=== PATIENT | male | born 1950 | race Caucasian/White ===

== ENCOUNTER 2016-05-27 19:46 | Inpatient (IN) | payer OTHER ==
--- NOTE | ~2016-05-27 | DS ---
Discharge Summary [facility] [address] [place]. [address] NAME: WILEY FAIR SR : 48 STATUS : DIS IN PAT#: [id number] AGE: 66 ADM/REG DATE : 05/27/16 MR#: [id number] REPORT SERV DATE: 06/09/16 DICTATED BY: SUYAPA KRAMER DATE: 06/08/16 REPORT STATUS : Draft TRANSCRIBED BY: SUSU DATE: 06/08/16 Data Collection from hospitalization DISCHARGE DIAGNOSES: 1. Ylt-DB-gluevieek myocardial infarction. 2. Coronary artery disease. 3. Chronic obstructive pulmonary disease. 4. Tobacco abuse. 5. Ischemic cardiomyopathy. 6. Anxiety. CONSULTATIONS: None. PROCEDURES PERFORMED: Cardiac catheterization on 05/31/2016. MEDICATIONS: Ventolin two puffs via inhaler every six hours as needed, aspirin 81 mg daily, Lipitor 40 mg daily, Coreg 3.125 mg twice a day, Plavix 75 mg daily, Cymbalta 60 mg daily, Monoket 20 mg twice a day, Prinivil 40 mg daily, Ativan 1 mg twice a day as needed, Movantik 25 mg twice a day, and Chantix 1 mg twice a day. He was instructed not to continue hydrochlorothiazide. CONDITION AT DISCHARGE: Stable. DISPOSITION: The patient was discharged home on a low-sodium, low-cholesterol, cardiac diet with activities as instructed. He would follow up with me on 06/21/2016. He would follow up with his primary care provider one week following discharge. HOSPITAL COURSE: This is a 66-year-old man who has coronary artery disease. He reportedly had a routine physical by his primary care physician, but while in the primary care physician's office on the day of this admission, he developed poorly defined left-sided chest burning and shoulder burning and diaphoresis. He was transferred to the emergency room where his initial troponin was negative, but it was reported that the last one was elevated up to 0.46. He did have some mild ST depression in the inferior leads and was started on intravenous heparin. He was transferred to our hospital. He was currently chest pain free. He does have chronic COPD without any routine inhalers. He had smoked heavily his entire life, one and half packs per day. He does have some underlying anxiety and memory loss. He has chronic mild dyspnea on exertion, but denies palpitations, syncope, or lower extremity edema. He was admitted to the hospital for further evaluation and treatment. Upon admission, aspirin was continued. He was started on carvedilol. LUCIO inhibitor and statin as well as intravenous heparin were continued. We would follow closely his cardiac enzymes and electrocardiogram. It was felt that he would ideally need to proceed with coronary arteriogram. The patient strongly declined at this time, he wanted to think about it. He was currently chest pain free. An echocardiogram was requested. He was going to be started on some inhalers for his COPD and a nicotine patch. The following day, an echocardiogram was performed. He denied any chest pain. Over the next couple of days, he denied chest pain. He did have some left shoulder pain. He said that he has been concerned Discharge Summary [address] [address] NAME: WILEY FAIR SR : 48 STATUS : DIS IN PAT#: [id number] AGE: 66 ADM/REG DATE : 05/27/16 MR#: [id number] REPORT SERV DATE: 06/09/16 DICTATED BY: SUYAPA KRAMER DATE: 06/08/16 REPORT STATUS : Draft TRANSCRIBED BY: SUSU DATE: 06/08/16 about possible complications of catheterization. The patient is argumentative. He has an ejection fraction of 45%-50%. He was continued on aspirin, statin, Coreg, and lisinopril. Heparin was continued. The patient was going to consider cardiac catheterization. On 05/30/2016, he complained of left shoulder pain. He had no chest pain or shortness of breath. He had some expiratory wheezing. He had no edema. The next day, the patient has had a non-ST elevation myocardial infarction. He had elected to proceed with cardiac catheterization. He was taken to the cardiac clinical lab assistant where he underwent the above- mentioned procedure by Dr. John Kat. He tolerated this well, and there were no complications. Discharge planning was performed. On 06/01/2016, he did complain of some left arm and back pain. He had no chest pain. He said the pain was mild. He wanted to go home. He said he had some indigestion. The patient had small vessels and diffuse coronary artery disease. There was no good target for percutaneous coronary intervention with relatively poor targets for coronary artery bypass grafting. The patient does have advanced pulmonary disease. He would be at high risk for coronary artery bypass grafting. His angiogram was essentially unchanged since 2013. Medical management was recommended. Coronary artery bypass grafting would be considered for refractory symptoms. A prescription was given for Chantix, he was told that he must stop smoking. The patient said he did not want to use Chantix at this time. Discharge instructions were given. Due to his improved and stable condition, he was discharged home with the above-stated instructions. Information collected by: Mercedes Bethea I submit the above information as my discharge summary. TG/MODL Suyapa Kramer MD / [id number] CC: Ted Luis M.D.
--- NOTE | ~2016-05-27 | HP ---
History And Physical [id number] [place]. [address] NAME: WILEY FAIR SR : 48 STATUS : ADM Leobardo PAT#: [id number] AGE: 66 ADM/REG DATE : 05/27/16 MR#: [id number] REPORT SERV DATE: 05/27/16 DICTATED BY: WADE ESPINAL DATE: 05/27/16 REPORT STATUS : Draft TRANSCRIBED BY: SUSU DATE: 05/27/16 DATE OF ADMISSION: 05/27/2016 REFERRING PHYSICIAN: Justus Anton ER physician. ACCEPTING PHYSICIAN: Matty Valle M.D. HISTORY OF PRESENT ILLNESS: This is a 66-year-old white gentleman, well known to Dr. Fisher from [facility], who has a known CAD. He reportedly has a routine physical by his PCP, but while in the PCP's office earlier today, he developed poorly defined left-sided chest burning and shoulder burning and diaphoresis. He was transferred to emergency room where his initial troponin was negative but reported that last one has been elevated up to 0.46. He got some mild ST depression in inferior leads and was started on intravenous heparin and transferred to our hospital. The patient is currently chest pain free. He is a poor historian, but denies any exertional or resting chest pain over the last couple years. This has been confirmed by his and several other family members in the room. He has a known coronary artery disease with history of SD in 2013 with PCI to LAD and left circumflex by Dr. Burdick. He has chronic COPD without any routine inhalers, who has been smoking heavily his entire life, one and a half pack a day. He has some underlying anxiety and memory loss. He is walking without any support. He has chronic mild dyspnea on exertion, but denies palpitations, syncope, or lower extremity edema. REVIEW OF SYSTEMS: The rest of review of systems is negative. PAST MEDICAL HISTORY: 1. Coronary artery disease with history of PCI to LAD and left circumflex in 2012 in the setting of myocardial infarction. 2. Ischemic cardiomyopathy with EF 45% in 2013. 3. COPD. 4. Smoking dependency. 5. Anxiety. 6. Memory loss. 7. Chronic low back pain. ALLERGIES: NO KNOWN DRUG ALLERGIES. SOCIAL HISTORY: The patient is retired. 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 He is . He has been smoking for last 40 years, one and a half pack a day. Denies drinking alcohol daily or using street drugs. FAMILY HISTORY: Negative for sudden cardiac deaths or premature coronary artery disease in the family. HOME MEDICATIONS: The patient does not remember the list but per Dr. Fisher's notes, in the past he has been on Cymbalta 60 mg once a day, hydrocortisone 12.5 mg once a day, Imdur History And Physical [address] [address] NAME: WILEY FAIR SR : 48 STATUS : ADM Leobardo PAT#: [id number] AGE: 66 ADM/REG DATE : 05/27/16 MR#: [id number] REPORT SERV DATE: 05/27/16 DICTATED BY: WADE ESPINAL DATE: 05/27/16 REPORT STATUS : Draft TRANSCRIBED BY: SUSU DATE: 05/27/16 30 mg once a day, lisinopril 40 mg once a day, and Lipitor 40 mg once a day. PHYSICAL EXAMINATION: GENERAL: An elderly gentleman who looks older than his biological age with poor dentition, but no acute distress. VITAL SIGNS: Blood pressure 150/76, heart rate 80 and regular. HEENT: Pupils reactive to light and accommodation. Moist mucosa membrane. NECK: No JVD. Normal carotid upstroke. No carotid bruits. LUNGS: Decreased breath sounds, bibasilar, with diffuse wheezing. No crackles. COR: Normal S1, S2. No S3 or S4. No significant rub or murmurs. ABDOMEN: Distended. Nontender. EXT: Lower extremity decreased pedal pulses bilaterally, but no edema. SKIN: Warm with normal turgor. There is some papular dermatitis on his upper chest also noted. MS: No kyphosis. NEURO/PSY: Alert and oriented. Nonfocal. LABORATORY DATA: Laboratory values from outside institution revealed nonfasting glucose 142. Electrolytes and CBC were otherwise within normal limits. Second troponin reportedly went up to 0.46. Chest x-ray in outside institution, no acute pathology. Electrocardiogram revealed normal sinus rhythm 76 beats per minute with intraventricular conduction delay with 0.5-[address]-depression in the inferior leads in outside institution, no labs available here. ASSESSMENT AND PLAN: 1. Likely acute coronary syndrome. 2. Chronic obstructive pulmonary disease. 3. Known coronary artery disease. Ischemic cardiomyopathy. We will continue aspirin and start him on carvedilol. Continue LUCIO inhibitor and statin and intravenous heparin. We will closely follow his cardiac enzymes and electrocardiogram. Ideally, he need to proceed with coronary arteriogram. I tried to explain to him the importance of it, but he did strongly decline. He will think about it and will consider talking to Dr. Fisher. He is currently chest pain free. We will plan for echocardiogram tomorrow. We will start him on some inhalers for his COPD and nicotine patch. He is a full code. ADELITA/SUSU Wade Espinal M.D. / [id number] CC: History And Physical [address] [address] NAME: WILEY FAIR Wilmer CENTENO : 46 STATUS : ADM Leobardo PAT#: [id number] AGE: 66 ADM/REG DATE : 05/27/16 MR#: [id number] REPORT SERV DATE: 05/27/16 DICTATED BY: WADE ESPINAL DATE: 05/27/16 REPORT STATUS : Draft TRANSCRIBED BY: SUSU DATE: 05/27/16 Radha Pruitt M.D.
[~2016-05-27 19:46] MED LIST: ASAB PO; CAP25 PO; COREG3 PO; CYMBALTA60 PO; IMDUR30 PO; LIPITOR10 PO; LOP25 PO; PLAVIX PO; ZESTORETIC PO
[2016-05-27 21:46] LABS: BASOPHILS 0.6 %; BASOPHILS ABSOLUTE 0.05 10/3/uL (0.0-0.16); EOSINOPHILS 1.4 %; EOSINOPHILS ABSOLUTE 0.12 10/3/uL (0.0-0.53); HEMOGLOBIN 15.1 g/dL (13.6-17.8); IMMATURE GRANULOCYTES 0.1 %; IMMATURE GRANULOCYTES ABSOLUTE 0.01 10/3/uL (0.0-0.11); LYMPHOCYTES 27.4 %; LYMPHOCYTES ABSOLUTE 2.41 10/3/uL (0.67-4.30); MEAN CORPUS HGB CONC 32.8 g/dL (32.0-36.0); MEAN CORPUSCULAR HEMOGLOB 28.2 pg (26.0-34.0); MEAN PLATELET VOLUME 9.8 fL (9.2-13.0); MONOCYTES 5.3 %; MONOCYTES ABSOLUTE 0.47 10/3/uL (0.21-1.20); NEUTROPHILS 65.2 %; NEUTROPHILS ABSOLUTE 5.75 10/3/uL (2.02-8.40); PLATELET COUNT 281 10/3/uL (150-400); RBC DISTRIBUTION WIDTH 14.9 % (12.0-16.0); RED CELL COUNT 5.36 10/6/uL (4.7-6.1); WHITE BLOOD CELLS 8.8 10/3/uL (4.5-10.5)
[2016-05-27 21:47] LABS: HEMATOCRIT 46.1 % (40.0-51.0); MANUAL DIFF NO %
[2016-05-27 22:02] LABS: BUN (BLOOD UREA NITROGEN) 22 MG/DL (6-23); CALCIUM, SERUM 8.8 MG/DL (8.5-10.4); CHLORIDE, SERUM 101 MMOL/L (96-112); CO2 (CARBON DIOXIDE) 29 MMOL/L (24-34); CREATININE 1.16 MG/DL (0.70-1.30); GFR AFRICAN AMERICAN 75 ML/MIN (>=60); GFR NON AFRICAN AMERICAN 64 ML/MIN (>=60); SODIUM, SERUM 138 MMOL/L (135-148)
[2016-05-27 22:03] LABS: GLUCOSE, SERUM 92 MG/DL (60-99); TROPONIN I 4.29 NG/ML (<0.05)
[2016-05-28 03:34] LABS: BASOPHILS 0.7 %; BASOPHILS ABSOLUTE 0.06 10/3/uL (0.0-0.16); EOSINOPHILS 2.3 %; EOSINOPHILS ABSOLUTE 0.19 10/3/uL (0.0-0.53); HEMATOCRIT 42.5 % (40.0-51.0); HEMOGLOBIN 14.2 g/dL (13.6-17.8); IMMATURE GRANULOCYTES 0.2 %; IMMATURE GRANULOCYTES ABSOLUTE 0.02 10/3/uL (0.0-0.11); LYMPHOCYTES 34.2 %; LYMPHOCYTES ABSOLUTE 2.77 10/3/uL (0.67-4.30); MEAN CORPUS HGB CONC 33.4 g/dL (32.0-36.0); MEAN CORPUSCULAR HEMOGLOB 28.5 pg (26.0-34.0); MEAN CORPUSCULAR VOLUME 85.3 fL (80-100); MEAN PLATELET VOLUME 9.9 fL (9.2-13.0); MONOCYTES ABSOLUTE 0.57 10/3/uL (0.21-1.20); NEUTROPHILS 55.6 %; NEUTROPHILS ABSOLUTE 4.49 10/3/uL (2.02-8.40); PLATELET COUNT 295 10/3/uL (150-400); RBC DISTRIBUTION WIDTH 15.1 % (12.0-16.0); RED CELL COUNT 4.98 10/6/uL (4.7-6.1); WHITE BLOOD CELLS 8.1 10/3/uL (4.5-10.5)
[2016-05-28 03:36] LABS: MANUAL DIFF NO %
[2016-05-28 03:42] LABS: CALCIUM, SERUM 8.3 MG/DL (8.5-10.4); CHLORIDE, SERUM 103 MMOL/L (96-112); CO2 (CARBON DIOXIDE) 29 MMOL/L (24-34); CREATININE 1.25 MG/DL (0.70-1.30); GFR AFRICAN AMERICAN 68 ML/MIN (>=60); GFR NON AFRICAN AMERICAN 59 ML/MIN (>=60); POTASSIUM, SERUM 3.7 MMOL/L (3.5-5.3); SODIUM, SERUM 140 MMOL/L (135-148)
[2016-05-28 03:43] LABS: BUN (BLOOD UREA NITROGEN) 29 MG/DL (6-23); GLUCOSE, SERUM 140 MG/DL (60-99); TROPONIN I 3.96 NG/ML (<0.05)
[2016-05-28] MEDS ORDERED: LISINOPRIL40 MG PO (13:51)
[2016-05-28] MEDS ORDERED: HYDROCHLOROT12.5 MG PO (13:51)
[2016-05-28] MEDS ORDERED: CYMBALTA60 PO (13:51)
[2016-05-28] MEDS ORDERED: LIPITOR20 PO (13:52)
[2016-05-28] MEDS ORDERED: ASAB PO (13:52)
[2016-05-28] MEDS ORDERED: ATV1 PO (13:52)
[2016-05-28] MEDS ORDERED: MOVANTIK25 MG PO (13:52)
[2016-05-28] MEDS ORDERED: VENTOLIN HFA INH (13:53)
[2016-05-29 06:20] LABS: BASOPHILS ABSOLUTE 0.08 10/3/uL (0.0-0.16); EOSINOPHILS 3.6 %; EOSINOPHILS ABSOLUTE 0.28 10/3/uL (0.0-0.53); HEMATOCRIT 40.2 % (40.0-51.0); HEMOGLOBIN 13.5 g/dL (13.6-17.8); IMMATURE GRANULOCYTES 0.3 %; IMMATURE GRANULOCYTES ABSOLUTE 0.02 10/3/uL (0.0-0.11); LYMPHOCYTES 36.1 %; LYMPHOCYTES ABSOLUTE 2.79 10/3/uL (0.67-4.30); MEAN CORPUS HGB CONC 33.6 g/dL (32.0-36.0); MEAN CORPUSCULAR HEMOGLOB 28.2 pg (26.0-34.0); MEAN CORPUSCULAR VOLUME 84.1 fL (80-100); MEAN PLATELET VOLUME 10.3 fL (9.2-13.0); MONOCYTES 7.1 %; MONOCYTES ABSOLUTE 0.55 10/3/uL (0.21-1.20); NEUTROPHILS 51.9 %; PLATELET COUNT 259 10/3/uL (150-400); RBC DISTRIBUTION WIDTH 15.3 % (12.0-16.0); RED CELL COUNT 4.78 10/6/uL (4.7-6.1); WHITE BLOOD CELLS 7.7 10/3/uL (4.5-10.5)
[2016-05-29 06:29] LABS: MANUAL DIFF NO %
[2016-05-29 06:34] LABS: CALCIUM, SERUM 8.6 MG/DL (8.5-10.4); CHLORIDE, SERUM 102 MMOL/L (96-112); CO2 (CARBON DIOXIDE) 26 MMOL/L (24-34); CREATININE 1.07 MG/DL (0.70-1.30); GFR AFRICAN AMERICAN 82 ML/MIN (>=60); GFR NON AFRICAN AMERICAN 71 ML/MIN (>=60); GLUCOSE, SERUM 112 MG/DL (60-99); POTASSIUM, SERUM 3.8 MMOL/L (3.5-5.3); SODIUM, SERUM 140 MMOL/L (135-148)
[2016-05-29 06:35] LABS: BUN (BLOOD UREA NITROGEN) 21 MG/DL (6-23)
[2016-05-30 06:01] LABS: BASOPHILS 1.1 %; BASOPHILS ABSOLUTE 0.09 10/3/uL (0.0-0.16); EOSINOPHILS 2.9 %; EOSINOPHILS ABSOLUTE 0.24 10/3/uL (0.0-0.53); HEMATOCRIT 39.6 % (40.0-51.0); HEMOGLOBIN 13.3 g/dL (13.6-17.8); IMMATURE GRANULOCYTES 0.2 %; IMMATURE GRANULOCYTES ABSOLUTE 0.02 10/3/uL (0.0-0.11); LYMPHOCYTES 32.3 %; LYMPHOCYTES ABSOLUTE 2.65 10/3/uL (0.67-4.30); MEAN CORPUS HGB CONC 33.6 g/dL (32.0-36.0); MEAN CORPUSCULAR HEMOGLOB 28.2 pg (26.0-34.0); MEAN CORPUSCULAR VOLUME 83.9 fL (80-100); MEAN PLATELET VOLUME 9.9 fL (9.2-13.0); MONOCYTES 6.6 %; MONOCYTES ABSOLUTE 0.54 10/3/uL (0.21-1.20); NEUTROPHILS 56.9 %; NEUTROPHILS ABSOLUTE 4.67 10/3/uL (2.02-8.40); PLATELET COUNT 257 10/3/uL (150-400); RED CELL COUNT 4.72 10/6/uL (4.7-6.1); WHITE BLOOD CELLS 8.2 10/3/uL (4.5-10.5)
[2016-05-30 06:02] LABS: MANUAL DIFF NO %
[2016-05-30 06:19] LABS: BUN (BLOOD UREA NITROGEN) 19 MG/DL (6-23); CALCIUM, SERUM 8.5 MG/DL (8.5-10.4); CHLORIDE, SERUM 106 MMOL/L (96-112); CO2 (CARBON DIOXIDE) 26 MMOL/L (24-34); CREATININE 1.22 MG/DL (0.70-1.30); GFR AFRICAN AMERICAN 70 ML/MIN (>=60); GFR NON AFRICAN AMERICAN 61 ML/MIN (>=60); GLUCOSE, SERUM 128 MG/DL (60-99); POTASSIUM, SERUM 4.1 MMOL/L (3.5-5.3); SODIUM, SERUM 140 MMOL/L (135-148)
[2016-05-30 06:21] LABS: TROPONIN I 1.28 NG/ML (<0.05)
[2016-05-31 05:27] LABS: BASOPHILS 0.9 %; BASOPHILS ABSOLUTE 0.08 10/3/uL (0.0-0.16); EOSINOPHILS 4.1 %; EOSINOPHILS ABSOLUTE 0.35 10/3/uL (0.0-0.53); HEMATOCRIT 40.6 % (40.0-51.0); HEMOGLOBIN 13.5 g/dL (13.6-17.8); IMMATURE GRANULOCYTES 0.2 %; IMMATURE GRANULOCYTES ABSOLUTE 0.02 10/3/uL (0.0-0.11); LYMPHOCYTES ABSOLUTE 2.71 10/3/uL (0.67-4.30); MEAN CORPUS HGB CONC 33.3 g/dL (32.0-36.0); MEAN CORPUSCULAR HEMOGLOB 28.2 pg (26.0-34.0); MEAN CORPUSCULAR VOLUME 84.8 fL (80-100); MONOCYTES ABSOLUTE 0.59 10/3/uL (0.21-1.20); NEUTROPHILS 55.8 %; NEUTROPHILS ABSOLUTE 4.71 10/3/uL (2.02-8.40); PLATELET COUNT 256 10/3/uL (150-400); RBC DISTRIBUTION WIDTH 14.5 % (12.0-16.0); RED CELL COUNT 4.79 10/6/uL (4.7-6.1); WHITE BLOOD CELLS 8.5 10/3/uL (4.5-10.5)
[2016-05-31 05:28] LABS: MANUAL DIFF NO %
[2016-05-31 05:35] LABS: BUN (BLOOD UREA NITROGEN) 18 MG/DL (6-23); CALCIUM, SERUM 8.5 MG/DL (8.5-10.4); CHLORIDE, SERUM 106 MMOL/L (96-112); CO2 (CARBON DIOXIDE) 26 MMOL/L (24-34); GFR AFRICAN AMERICAN 80 ML/MIN (>=60); GFR NON AFRICAN AMERICAN 69 ML/MIN (>=60); GLUCOSE, SERUM 113 MG/DL (60-99); HDL CHOLESTEROL 22 MG/DL (> 39); POTASSIUM, SERUM 4.1 MMOL/L (3.5-5.3); SODIUM, SERUM 141 MMOL/L (135-148)
[2016-05-31 05:40] LABS: CHOL/HDL RATIO(NOT ORDER) 7.4 (0-5); CHOLESTEROL 163 MG/DL (< 200); LDL CHOLESTEROL 73 MG/DL (< 130); NON-HDL CHOLESTEROL 141 MG/DL (< 160); TRIGLYCERIDE 342 MG/DL (< 150)
[2016-06-01 05:02] LABS: BASOPHILS 1.2 %; EOSINOPHILS 4.3 %; EOSINOPHILS ABSOLUTE 0.35 10/3/uL (0.0-0.53); HEMATOCRIT 40.1 % (40.0-51.0); IMMATURE GRANULOCYTES 0.4 %; IMMATURE GRANULOCYTES ABSOLUTE 0.03 10/3/uL (0.0-0.11); LYMPHOCYTES 25.4 %; LYMPHOCYTES ABSOLUTE 2.05 10/3/uL (0.67-4.30); MEAN CORPUS HGB CONC 32.4 g/dL (32.0-36.0); MEAN CORPUSCULAR HEMOGLOB 27.8 pg (26.0-34.0); MEAN CORPUSCULAR VOLUME 85.7 fL (80-100); MONOCYTES 7.2 %; MONOCYTES ABSOLUTE 0.58 10/3/uL (0.21-1.20); NEUTROPHILS 61.5 %; NEUTROPHILS ABSOLUTE 4.95 10/3/uL (2.02-8.40); PLATELET COUNT 246 10/3/uL (150-400); RBC DISTRIBUTION WIDTH 14.9 % (12.0-16.0); RED CELL COUNT 4.68 10/6/uL (4.7-6.1); WHITE BLOOD CELLS 8.1 10/3/uL (4.5-10.5)
[2016-06-01 05:07] LABS: MANUAL DIFF NO %
[2016-06-01 05:13] LABS: BUN (BLOOD UREA NITROGEN) 17 MG/DL (6-23); CALCIUM, SERUM 8.9 MG/DL (8.5-10.4); CHLORIDE, SERUM 106 MMOL/L (96-112); CO2 (CARBON DIOXIDE) 25 MMOL/L (24-34); CREATININE 1.19 MG/DL (0.70-1.30); GFR AFRICAN AMERICAN 72 ML/MIN (>=60); GFR NON AFRICAN AMERICAN 62 ML/MIN (>=60); GLUCOSE, SERUM 123 MG/DL (60-99); POTASSIUM, SERUM 4.5 MMOL/L (3.5-5.3); SODIUM, SERUM 141 MMOL/L (135-148)
[2016-06-01] MEDS ORDERED: MONOKET20 PO (09:33)
[2016-06-01] MEDS ORDERED: PLAVIX PO (09:34)
[2016-06-01] MEDS ORDERED: CHANTIX1 PO (09:34)
[2016-06-01] MEDS ORDERED: COREG3 PO (09:34)
== END 2016-06-01 12:11 | disposition home or self-care (01) | DRG 282 ==
LOC: 5NO 19:46
PROVIDERS: Internal Medicine; Internal Medicine Cardiovascular Disease
PROC: 4A023N7 Measurement of Cardiac Sampling and Pressure, Left Heart, Percutaneous Approach (ICD-10-PCS; principal; 2016-05-31)
PROC: B2111ZZ Fluoroscopy of Multiple Coronary Arteries using Low Osmolar Contrast (ICD-10-PCS; 2016-05-31)
PROC: B2151ZZ Fluoroscopy of Left Heart using Low Osmolar Contrast (ICD-10-PCS; 2016-05-31)
DX: I21.4 Non-ST elevation (NSTEMI) myocardial infarction (principal); J44.9 Chronic obstructive pulmonary disease, unspecified; F32.9 Major depressive disorder, single episode, unspecified; I25.10 Atherosclerotic heart disease of native coronary artery without angina pectoris; I25.5 Ischemic cardiomyopathy; F41.9 Anxiety disorder, unspecified; G89.29 Other chronic pain; E78.00 Pure hypercholesterolemia, unspecified; M54.5 Low back pain; Z79.899 Other long term (current) drug therapy; Z98.41 Cataract extraction status, right eye; Z98.42 Cataract extraction status, left eye; Z98.890 Other specified postprocedural states; I24.9 Acute ischemic heart disease, unspecified
CPT/HCPCS: 80048; 80061; 84484; 85025; 85730; 93005; 93458; 96372; 99152; 99153; A9270-GY; C1769; C1887; C1894; C8929; G0378; J2250; J2370; J3010; Q9957; Q9967